=== PATIENT | male | born 1995 | race Caucasian/White ===

== ENCOUNTER 2019-08-02 11:10 | Emergency (ER) | payer MEDICAID, OTHER ==
[~2019-08-02] VITALS: Ht 177.8 cm; Wt 67.0 kg
[2019-08-02 11:52] LABS: PARTIAL THROMBOPLASTIN TIME 26 SECONDS (22-32)
[2019-08-02 11:54] LABS: ALANINE AMINOTRANSFERASE 43 U/L (12-78); ALBUMIN 3.8 G/DL (3.4-5.0); ALBUMIN/GLOBULIN RATIO 0.8 (1.1-1.5); ALKALINE PHOSPHATASE 104 IU/L (46-116); ANION GAP 6 (8-16); ASPARTATE AMINO TRANSFERASE 28 U/L (10-37); BILIRUBIN,TOTAL 0.4 MG/DL (0.1-1.0); BLOOD UREA NITROGEN 10 MG/DL (7-18); BUN/CREATININE RATIO 9.1 (5.4-32.0); CALCIUM 9.7 MG/DL (8.5-10.1); CHLORIDE 101 MMOL/L (99-107); GLUCOSE 102 MG/DL (70-104); POTASSIUM 4.1 MMOL/L (3.5-5.1); SODIUM 138 MMOL/L (135-145); TOTAL CARBON DIOXIDE 31.4 MMOL/L (24-32); TOTAL PROTEIN 8.6 G/DL (6.4-8.2); eGFR 82 ML/MIN
[2019-08-02 12:15] LABS: BASOPHILS # (AUTO) 0.1 X10'3 (0-0.2); BASOPHILS % (AUTO) 1.1 % (0-1); EOSINOPHILS # (AUTO) 0.3 X10'3 (0-0.9); EOSINOPHILS % (AUTO) 4.1 % (0-6); HEMOGLOBIN 16.4 g/dl (14.0-17.9); LYMPHOCYTES # (AUTO) 1.6 X10'3 (1.1-4.8); LYMPHOCYTES % (AUTO) 19.4 % (21-51); MEAN CORPUSCULAR HEMOGLOBIN 32.7 PG (27.0-31.0); MEAN CORPUSCULAR HGB CONC 35.6 g/dL (33.0-36.5); MEAN CORPUSCULAR VOLUME 91.8 FL (78-98); MONOCYTES # (AUTO) 0.9 X10'3 (0-0.9); MONOCYTES % (AUTO) 10.5 % (2-12); NEUTROPHILS # (AUTO) 5.5 X10'3 (1.8-7.7); NEUTROPHILS % (AUTO) 64.9 % (42-75); RED BLOOD COUNT 5.01 X10'6 (4.70-6.10); RED CELL DISTRIBUTION WIDTH 12.4 % (11.5-14.5); WHITE BLOOD COUNT 8.4 X10'3 (4.5-11.0)
[2019-08-02] MEDS ORDERED: iohexol 350MG/ML 100ml bottle IV ONE (12:42)
[2019-08-02 13:10] LABS: MEAN PLATELET VOLUME 7.2 FL (7.4-10.4); PLATELET COUNT 397 X10'3 (140-440)
--- NOTE | 2019-08-02 13:50 | NUR ---
PT TO CT
[2019-08-02] MEDS ORDERED: CEFD300C3 PO (14:33)
[2019-08-02] MEDS ORDERED: AZIT250T83 PO (14:33)
[2019-08-02 14:57] VITALS: BP 144/73
== END 2019-08-02 14:59 | disposition home or self-care (01) ==
LOC: ER 11:11
DX: J18.9 Pneumonia, unspecified organism (principal); R00.0 Tachycardia, unspecified; Z79.2 Long term (current) use of antibiotics
CPT/HCPCS: 36415; 71045; 71275; 80053; 84484; 85025; 85610; 85730; 93005; 99284; Q9967